=== PATIENT | female | born 1960 | race Caucasian/White ===

== ENCOUNTER 2020-01-21 10:05 | Emergency (ER) | payer SELFPAY ==
[~2020-01-21] VITALS: Ht 162.6 cm; Wt 90.7 kg
[2020-01-21 10:31] VITALS: BP 125/73
== END 2020-01-21 13:23 | disposition home or self-care (01) ==
LOC: EDBD 10:05 → ER 10:05
DX: M25.461 Effusion, right knee (principal); W19.XXXA Unspecified fall, initial encounter; Y93.89 Activity, other specified; Y92.89 Other specified places as the place of occurrence of the external cause; Y99.8 Other external cause status
CPT/HCPCS: 73562